=== PATIENT | male | born 1990 | race Caucasian/White ===

== ENCOUNTER 2016-07-27 18:06 | Emergency (ER) | payer BC, OTHER ==
[2016-07-27 18:31] VITALS: BP 122/71
[2016-07-27] MEDS ORDERED: cefTRIAXone VIAL(*) 1,000 MG VIAL IM ONE (21:07)
--- NOTE | 2016-07-27 21:14 | ED ---
Throat Pain/Nasal Congestion - HPI Summary HPI Summary: The patient is a 26 year old male presenting to ED for complaint of left lower dental pain and facial swelling since June 2016. Was initially evaluate in ED 07/04/16 then 07/09/16 on latest visit prescribed Clindamycin 450 TID and Percocet. States after few days of Clindamycin, swelling and pain decreased so prematurely discontinued taking ABx. Several days later pain and facial swelling returned. Admits to diaphoresis and "nasty taste." Denies fever, visual disturbance, nasal symptoms, sore throat, inability to swallow, drooling , cough, or shortness of breath, facial rash. Denies significant medical or surgical history. Unknown family history as not communicating with parents. SH: Current smoker and weekly alcohol use. No IVDU. Works at [employer]. Indicates now has dental insurance coverage. No dentist. 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, no medication and hasn' t had seizure since 12yo Infectious Disease History: Yes Infectious Disease History: Denies: Hx Clostridium Difficile, Hx Hepatitis, Hx Human Immunodeficiency Virus (HIV), Hx Shingles, Hx Tuberculosis, Hx Known/Suspected VRE, Hx Known/ Suspected VRSA, History Other Infectious Disease, Traveled Outside the [place] in Last 30 Days - Family History Known Family History: Positive: Other - breast cancer, thyroid Negative: Hypertension, Diabetes - Social History Alcohol Use: Weekly Substance Use Type: Reports: Marijuana Smoking Status (MU): Heavy Every Day Tobacco Smoker Type: Cigarettes, Cigars Amount Used/How Often: 1 PPD Length of Time of Smoking/Using Tobacco: 10 years old began Have You Smoked in the Last Year: Yes Review of Systems Positive: Skin Diaphoresis. Negative: Fever, Chills Eyes: Negative Positive: Dental Pain. Negative: Sore Throat, Nasal Discharge Respiratory: Negative Negative: Shortness Of Breath, Cough Skin: Negative Negative: Rash All Other Systems Reviewed And Are Negative: Yes Physical Exam Triage Information Reviewed: Yes Vital Signs On Initial Exam: Initial Vitals Temp Pulse Resp BP Pulse Ox 98.9 F 98 15 122/71 100 07/27/16 18:26 07/27/16 18:26 07/27/16 18:26 07/27/16 18:26 07/27/16 18:26 Vital Signs Reviewed: Yes Appearance: Positive: Well-Appearing, Well-Nourished, Pain Distress - speaking calmly without guarding or grimace Skin: Positive: Warm, Skin Color Reflects Adequate Perfusion, Dry Head/Face: Positive: Other - minimal induration left mandible without erythema, warmth, fluctuance Eyes: Positive: Normal, EOMI, JOI, Conjunctiva Clear ENT: Positive: Hearing grossly normal, Pharynx normal, TMs normal, Dental tenderness, Other - no drooling. Negative: Pharyngeal erythema, Nasal congestion, Nasal drainage, TM bulging, TM dull, TM red, Tonsillar swelling, Tonsillar exudate, Trismus, Muffled/hoarse voice Dental: Positive: Gross Decay/Caries @ - diffuse plaque and caries with decay of teeth #17-18, no gingival erythema, fluctuance, drainage., Cervical Lymphadenopathy - mild left submandibular. Negative: Dental Fracture @, Bleeding, Foreign body Neck: Positive: Supple, Nontender Respiratory/Lung Sounds: Positive: Clear to Auscultation, Breath Sounds Present. Negative: Rales, Rhonchi, Wheezes Cardiovascular: Positive: Normal, RRR, S1, S2. Negative: Murmur, Rub, Tachycardia Neurological: Positive: Normal - awake, alert Psychiatric: Positive: Normal AVPU Assessment: Alert Procedures - Procedure Summary Procedure Summary: Inferior alveolar nerve block with 50% Bupivicaine 2 cc. Patient tolerated well without complication. Diagnostics - Vital Signs Vital Signs Temp Pulse Resp BP Pulse Ox 07/27/16 18:26 98.9 F 98 15 122/71 100 - Laboratory Lab Statement: Any lab studies that have been ordered have been reviewed, and results considered in the medical decision making process. EENT Course/Dx - Course Assessment/Plan: Clinical impression of recurrent dental abscess secondary to medication and follow-up noncompliance. Will extend duration of clindamycin. Given dental block. Advised to continue with OTC NSAID. Given referral to oral surgeon to follow-up leonid. - Diagnoses Provider Diagnoses: Dental caries, Dental abscess Discharge - Discharge Plan Condition: Stable Disposition: HOME Prescriptions: Chlorhexidine MOUTHWASH 0.12%* [Peridex Mouth Wash 0.12%*] 15 ml PO TID #473 ml Clindamycin CAP* [Cleocin 150 MG CAP*] 3 tab PO TID #30 cap Patient Education Materials: Dental Abscess (ED) Referrals: Westley Aldridge MD [Doctor of Dental Medicine] - (call tmrw for appointment LEONID)
== END 2016-07-27 22:20 | disposition home or self-care (01) ==
LOC: ED 18:06
DX: K02.9 Dental caries, unspecified (principal); K04.7 Periapical abscess without sinus; K08.89 Other specified disorders of teeth and supporting structures; R61 Generalized hyperhidrosis; F17.210 Nicotine dependence, cigarettes, uncomplicated
CPT/HCPCS: 96372; 99282; J0696